=== PATIENT | female | born 1975 | race Caucasian/White ===

== ENCOUNTER 2020-06-12 14:47 | Outpatient (REF) | payer OTHER, SELFPAY ==
--- NOTE | 2020-06-12 15:29 | XR_ITS ---
EXAMINATION: XR FOOT, RIGHT CLINICAL INFORMATION: Pain. COMPARISON: None. TECHNIQUE: AP, lateral, and oblique views of the right foot. FINDINGS: There is no acute or healing fracture, dislocation or destructive process. There are bulky posterior and plantar calcaneal spurs. There is mild spurring proximal dorsal navicular. The midfoot and forefoot shows no focal joint narrowing or erosive changes. There is a tiny cyst medial head 1st metatarsal. IMPRESSION: 1. No fracture or destructive process. 2. No focal joint narrowing or erosive changes. 3. Bulky calcaneal spurs.
== END 2020-06-12 14:48 | disposition home or self-care (01) ==
LOC: HO.XRAY 14:47
PROVIDERS: Visit Provider Physician Assistant
DX: S93.401A Sprain of unspecified ligament of right ankle, initial encounter (principal)
CPT/HCPCS: 73630; 99213

== ENCOUNTER → 2020-07-12 09:48 | Outpatient (BNVA) | payer OTHER, SELFPAY | PROVIDERS: Visit Provider Physician Assistant | DX: S93.401D Sprain of unspecified ligament of right ankle, subsequent encounter (principal) | CPT/HCPCS: 99212 ==

== ENCOUNTER 2020-08-12 09:00 | Outpatient (RCR) | payer OTHER, SELFPAY ==
--- NOTE | 2020-08-12 10:03 | MHC.PT.DC ---
[facility] [place] [facility] [place] [facility] [place] [facility] [address] Rosemarie Masterson [address] [phone] F: [phone] F: [phone] F: [phone] F: [phone] Physical Therapy Discharge Report Diagnosis: S93.491A sprain of other ligament of right ankle, initial encounter Date of Surgery: N/A Date of Evaluation: 05/17/20 Date of Discharge: 08/12/20 Treatments to Date: 23 Cancellations to Date: 0 No Shows to Date: 0 Discharge Status: Achieved Goals Improved Function Independent with HEP Discharge Summary: The patient has within normal limits strength and range of motion of the right ankle. She has progressed to higher level balance and strengthening activities. She has been participating in work-specific exercises to facilitate return to work. She is independent with her home exercise program and has the appropriate therabands to complete at home. She is discharged from this physical therapy plan of care to her home exercise program. Electronically signed by: Niki Sanz PT, DPT Please sign and return to therapist. Thank you for your referral.
== END 2020-08-12 10:03 | disposition other institution (70) ==
LOC: HO.PT 09:00
PROVIDERS: Visit Provider Physician Assistant
DX: S93.491A Sprain of other ligament of right ankle, initial encounter (principal)
CPT/HCPCS: 97110; 97112; 97116; 97164; 97530